=== PATIENT | female | born 1995 | race Caucasian/White ===

== ENCOUNTER 2017-01-16 11:14 | Emergency (ER) | payer OTHER ==
[~2017-01-16] VITALS: Ht 167.6 cm; Wt 71.4 kg
[2017-01-16 12:01] LABS: MCH 22.5 PG (29.0-34.0); MCHC 30.3 G/DL (30.0-36.0); MCV 74.2 FL (83-99); MEAN PLAT.VOLUME 9.9 uM^3 (9.5-12.4); PLATELET COUNT 518 K/uL (156-360); RBC DIS.WIDTH-CV 17.6 % (11.8-14.6); RBC DIS.WIDTH-SD 46.8 % (39-53); RED BLOOD COUNT 4.72 M/uL (3.80-5.20); WHITE BLOOD COUNT 15.4 K/uL (4.1-10.2)
[2017-01-16 12:02] LABS: CHLORIDE 103 mEq/L (99-109); POTASSIUM 4.4 mEq/L (3.7-5.4); SODIUM 141 mEq/L (136-147)
[2017-01-16 12:04] LABS: GLUCOSE 123 mg/dL (70-99)
[2017-01-16 12:05] LABS: ANION GAP 11 MEQ/L (2-14)
[2017-01-16 12:08] LABS: GFR ESTIMATE (CALCULATED) > 59 mL/min/; UREA NITROGEN (BUN) 10 mg/dL (9-23)
[2017-01-16 12:10] LABS: TROP-I INTERPRETATION NEGATIVE; TROPONIN-I < 0.01 ng/mL (0.0-0.30)
[2017-01-16 13:03] LABS: D-DIMER ELISA 0.85 mg/L FEU (< 0.57)
[2017-01-16 13:11] LABS: QUANTITATIVE HCG < 4.0 MIU/ML
[2017-01-16 13:33] LABS: TOTAL BILIRUBIN 0.2 mg/dL (0.0-1.0)
[2017-01-16 13:34] LABS: ALKALINE PHOSPHATASE 142 IU/L (3-129)
[2017-01-16 13:36] LABS: DIRECT BILIRUBIN 0.1 mg/dL (0.0-0.3)
[2017-01-16 13:37] LABS: LIPASE 3 U/L (1.0-51.0)
[2017-01-16] MEDS ORDERED: ATIVAN0.5 MG PO (15:52)
[2017-01-16 16:18] VITALS: BP 127/75
[2017-01-16 16:20] LABS: ERTH.SED.RATE 81 MM/HR (0-20)
== END 2017-01-16 16:20 | disposition home or self-care (01) ==
LOC: EME 11:14
DX: R59.1 Generalized enlarged lymph nodes (principal); R00.0 Tachycardia, unspecified; R07.9 Chest pain, unspecified; R06.02 Shortness of breath; D72.829 Elevated white blood cell count, unspecified; D64.9 Anemia, unspecified; Z82.3 Family history of stroke
CPT/HCPCS: 71020; 71275; 80048; 80076; 83690; 84484; 84702; 85027; 85379; 85651; 93005; 99281; 99284; J1885; J2060; J7030